=== PATIENT | female | born 2000 | race Caucasian/White ===

== ENCOUNTER 2024-02-03 19:33 | Emergency (ER) | payer OTHER ==
[2024-02-03] MEDS ORDERED: Albuterol/Ipratropium 3 MG-0.5 MG/3 ML Neb Soln IH ONE (19:45)
[2024-02-03] MEDS ORDERED: Budesonide Neb Soln 0.5 MG/2 ML AMP IH ONE (20:00)
[2024-02-03] MEDS ORDERED: MUCUS RELIEF600 MG PO (20:28)
[2024-02-03] MEDS ORDERED: ZITHROMAX TRI-500 MG PO (20:28)
[2024-02-03 20:37] VITALS: BP 114/80
== END 2024-02-03 20:37 | disposition home or self-care (01) ==
LOC: ED 19:33
DX: R05.9 Cough, unspecified (principal)